=== PATIENT | male | born 1990 | race Caucasian/White ===

== ENCOUNTER 2019-02-04 11:28 | Emergency (ER) | payer OTHER, BC ==
[2019-02-04] MEDS ORDERED: SODIUM CHLORIDE 0.9% 1,000 ML IV STA (11:38)
[2019-02-04 11:42] LABS: Glucose,Whole Blood 90 mg/dL (75-99)
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
--- NOTE | 2019-02-04 12:02 | XR ---
EXAMINATION TYPE: XR pelvis AP view DATE OF EXAM: 02/04/2019 CLINICAL HISTORY: pain TECHNIQUE: Single view the pelvis is submitted. FINDINGS: No evidence for fracture, dislocation or bony lesion. Joint spaces are well-preserved. S I joints appear symmetric. IMPRESSION: 1. No acute fracture or dislocation seen. ICD 10 NO FRACTURE, INITIAL EVALUATION
--- NOTE | 2019-02-04 12:03 | XR ---
EXAMINATION TYPE: XR chest 1V portable DATE OF EXAM: 02/04/2019 COMPARISON: NONE HISTORY: Chest pain TECHNIQUE: Single frontal view of the chest is obtained. FINDINGS: There is no focal air space opacity, pleural effusion, or pneumothorax seen. The cardiac silhouette size is within normal limits. The osseous structures are intact. IMPRESSION: 1. No acute process.
[2019-02-04 12:15] LABS: Basophils % (A) 1 %; Eosinophils # (A) 0.5 k/uL (0-0.7); Eosinophils % (A) 6 %; HCT 45.9 % (39.0-53.0); HGB 16.1 gm/dL (13.0-17.5); Lymphocytes # (A) 1.8 k/uL (1.0-4.8); Lymphocytes % (A) 24 %; MCH 31.7 pg (25.0-35.0); MCHC 35.1 g/dL (31.0-37.0); MCV 90.4 fL (80.0-100.0); Monocytes # (A) 0.5 k/uL (0-1.0); Monocytes % (A) 6 %; Neutrophils # (A) 4.7 k/uL (1.3-7.7); Neutrophils % (A) 62 %; Platelet Count 266 k/uL (150-450); RBC 5.08 m/uL (4.30-5.90); RDW 12.9 % (11.5-15.5); WBC 7.5 k/uL (3.8-10.6)
[2019-02-04 12:24] LABS: Prothrombin Time 10.8 sec (9.0-12.0)
[2019-02-04 12:25] LABS: ALT 29 U/L (21-72); AST 21 U/L (17-59); Albumin 4.5 g/dL (3.5-5.0); Alcohol <10 mg/dL; Alkaline Phosphatase 83 U/L (38-126); Amylase 65 U/L (30-110); Anion Gap 7 mmol/L; Blood Urea Nitrogen 17 mg/dL (9-20); Calcium 10.1 mg/dL (8.4-10.2); Carbon Dioxide 28 mmol/L (22-30); Chloride 106 mmol/L (98-107); Glucose 76 mg/dL (74-99); Lipase 50 U/L (23-300); Potassium 4.7 mmol/L (3.5-5.1); Sodium 141 mmol/L (137-145); Total Bilirubin 1.7 mg/dL (0.2-1.3); Total Protein 7.6 g/dL (6.3-8.2)
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
[2019-02-04 12:36] LABS: Creatine Kinase 111 U/L (55-170)
[2019-02-04 12:48] LABS: Creatine Kinase MB 0.9 ng/mL (0.0-2.4); Troponin I <0.012 ng/mL (0.000-0.034)
--- NOTE | 2019-02-04 13:10 | XR ---
EXAMINATION TYPE: XR shoulder complete RT DATE OF EXAM: 02/04/2019 CLINICAL HISTORY: pain TECHNIQUE: Three views of the right shoulder are obtained. COMPARISON: None FINDINGS: There is no acute fracture/dislocation evident. The acromioclavicular and glenohumeral mode int spaces appear within normal limits. The visualized ribs are intact and unremarkable. IMPRESSION: 1. There is no acute fracture or dislocation. ICD 10 NO FRACTURE, INITIAL EVALUATION
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
[2019-02-04] MEDS ORDERED: LIDOCAINE 1% INJ 10MG/ML (20 ML MDV) SQ STA (13:30)
== END 2019-02-04 15:25 | disposition home or self-care (01) ==
LOC: EC 11:28
DX: S43.51XA Sprain of right acromioclavicular joint, initial encounter (principal); S61.411A Laceration without foreign body of right hand, initial encounter; F17.200 Nicotine dependence, unspecified, uncomplicated; V89.2XXA Person injured in unspecified motor-vehicle accident, traffic, initial encounter; Y92.410 Unspecified street and highway as the place of occurrence of the external cause
CPT/HCPCS: 99284; 12001; 36415; 86900; 86901; 80053; 82150; 82550; 82553; 83605; 83690; 84484; 85025; 85610; 85730; 86850; 80320; 72170; 73030; 73130; 71045; 72125; 70450; 71260; 74177; Q9967

== ENCOUNTER 2019-02-06 09:36 | Emergency (ER) | payer OTHER, BC ==
[2019-02-06 09:45] VITALS: BP 107/68; PULSE 107; RESP 16; TEMP 97.4
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
[2019-02-06] MEDS ORDERED: Acetaminophen-Codeine 300-30mg TAB PO STA (10:07)
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
[2019-02-06] MEDS ORDERED: IBUPROFEN 600 MG STARTER PACK 4 TAB BTL PO STA (10:23)
== END 2019-02-06 10:44 | disposition home or self-care (01) ==
LOC: EC 09:36
DX: S43.004D Unspecified dislocation of right shoulder joint, subsequent encounter (principal); F17.200 Nicotine dependence, unspecified, uncomplicated; V49.9XXD Car occupant (driver) (passenger) injured in unspecified traffic accident, subsequent encounter
CPT/HCPCS: 73050; 99283